=== PATIENT | female | born 1970 | race Caucasian/White ===

== ENCOUNTER 2019-07-27 06:54 | Emergency (ER) | payer MEDICAID ==
[~2019-07-27] VITALS: Ht 162.6 cm; Wt 68.0 kg
[~2019-07-27 06:54] MED LIST: LEVO112T7 PO
[2019-07-27 07:35] VITALS: BP 142/95
== END 2019-07-27 08:04 | disposition home or self-care (01) ==
LOC: ER 06:54
DX: J06.9 Acute upper respiratory infection, unspecified (principal); J04.0 Acute laryngitis
CPT/HCPCS: 99283

== ENCOUNTER 2020-01-30 17:51 | Emergency (ER) | payer MEDICAID ==
[~2020-01-30] VITALS: Ht 162.6 cm; Wt 68.0 kg
[2020-01-30] MEDS ORDERED: TETANUS, DIPHTHERIA, PERTUSSIS VAC/PF 0.5ML (>7YR OLD) IM ONE (18:45)
[2020-01-30] MEDS ORDERED: HYDROCODONE/ACETAMINOPHEN 5/325MG TABLET PO NR (19:30)
[2020-01-30 21:03] VITALS: BP 151/88
== END 2020-01-30 21:06 | disposition home or self-care (01) ==
LOC: ER 17:51
DX: S80.211A Abrasion, right knee, initial encounter (principal); M25.562 Pain in left knee; M25.561 Pain in right knee; I10 Essential (primary) hypertension; Z98.890 Other specified postprocedural states; E03.9 Hypothyroidism, unspecified; V19.88XA Pedal cyclist (driver) (passenger) injured in other specified transport accidents, initial encounter; Y93.55 Activity, bike riding; Y92.89 Other specified places as the place of occurrence of the external cause; Y99.8 Other external cause status
CPT/HCPCS: 73562; 90471; 90715; 93005; 99283

== ENCOUNTER 2020-03-04 22:31 | Emergency (ER) | payer MEDICAID ==
[~2020-03-04] VITALS: Ht 154.9 cm; Wt 60.0 kg
[2020-03-05 00:26] LABS: EOSINOPHILS % 1.4 % (0.0-5.0); HEMOGLOBIN. 12.8 g/dL (12.0-16.0); LYMPHOCYTES % 23.3 % (20.0-50.0); MEAN CORPUSCULAR HEMOGLOBIN 28.4 pg (28.0-32.0); MEAN CORPUSCULAR VOLUME 82.2 fL (81.0-99.0); MONOCYTES % 10.2 % (2.0-8.0); NEUTROPHILS % 64.1 % (40.0-76.0); PLATELET 337 x1000/uL (130-400); RED CELL DISTRIBUTION WIDTH 14.1 % (11.6-14.6)
[2020-03-05 00:34] LABS: CHLORIDE 106 mEq/L (98-107)
[2020-03-05] MEDS ORDERED: SODIUM CHLORIDE 0.9% 1,000 ML IV ONE (00:57)
[2020-03-05 00:59] VITALS: BP 148/101
[2020-03-05] MEDS ORDERED: POTASSIUM CHLORIDE 20MEQ TABLET SR PO ONE (01:00)
[2020-03-05 02:00] LABS: CLARITY URINE CLOUDY (CLEAR); COLOR URINE YELLOW (YELLOW); KETONES URINE 1+ (NEGATIVE); LEUKOCYTE ESTERASE URINE 1+ (NEGATIVE); NITRITE URINE NEGATIVE (NEGATIVE); OCCULT BLOOD URINE NEGATIVE (NEGATIVE); PROTEIN URINE NEGATIVE (NEGATIVE); SPECIFIC GRAVITY URINE 1.015 (1.005-1.030)
== END 2020-03-05 01:56 | disposition home or self-care (01) ==
LOC: ER 23:45
DX: E87.6 Hypokalemia (principal); N30.90 Cystitis, unspecified without hematuria; I10 Essential (primary) hypertension
CPT/HCPCS: 36415; 80053; 81003; 85025; 87086; 96360; 99283; J7030